=== PATIENT | female | born 1960 | race Caucasian/White ===

== ENCOUNTER 2019-09-15 14:47 | Outpatient (CLI) | payer BC ==
--- NOTE | 2019-09-15 16:33 | Diagnostic Imaging Report ---
Indication: Cough Comparison: None 2 views of the chest obtained. Findings: The right hemithorax is almost completely devoid of lung markings. There are areas of pleural thickening and there is an air-fluid level at the right lung base. Surgical clips are seen in the right hilum indicative of previous partial lung resection. Findings are consistent with a large bullous cavity. This may be a very large bulla within the right lung or related to prior partial or complete pneumonectomy. Correlate clinically. Left lung is essentially clear. Heart size appears normal. Trachea and mediastinum are midline. IMPRESSION: Large hyperlucency on the right. This is most likely fluid within a very large bulla. Evidence of previous surgery suggests at least partial pneumonectomy on the right.
== END 2019-09-15 16:47 | disposition home or self-care (01) ==
LOC: RAD 14:47
DX: R05 Cough (principal)
CPT/HCPCS: 71046